=== PATIENT | female | born 1965 | race Caucasian/White ===

== ENCOUNTER → 2017-03-28 | Outpatient (CLI) | payer BC ==
--- NOTE | ~2017-03-28 | NDGEN ---
PATIENT'S NAME: JAMIN SHANKAR [facility] AGE: 52 Y [address] ROOM: [place] [address] LOCATION: [facility] ADMIT DATE: 03/28/2017 Neurodiagnostics DISCHARGE DATE: FAMILY PHYSICIAN: Robert Ramirez MD ATTENDING PHYSICIAN: RACQUEL LAI PROCEDURE: ELECTROENCEPHALOGRAM DATE OF PROCEDURE: 03/28/2017 TIME OF STUDY: 9:55 a.m. This EEG was done for this 52-year-old patient who recently has had difficulty with her memory and occasional unexplained spells of spacing off. Does not remember these specific events. This EEG was done to rule out any evidence of seizure activity or background impairment on the brain wave study. This is a 20-lead EEG done with the patient alert and not drowsy. The patient was awake during this 20-minute study. Hyperventilation and photic stimulation was done during the study. The general background rhythm showed an excellent symmetric sinusoidal pattern of 9 to 10 hertz alpha rhythm pattern, which remained stable throughout the whole course of the study. Occasional eye blink artifacts were seen throughout the study. At no time was there any variability to the background rhythm. There was a nice normal response to photic stimulation with increase in the amplitudes up to 40 microvolts with the patient's eyes closed as well as with photic stimulation. There were no epileptiform features seen and no seizures were recorded. IMPRESSION: Normal EEG. MD NADIA SANTILLAN/modl /[id number] dtt: 04/15/17 1632 JOELLE JASON R. dtd: 03/29/17 0011
== END | disposition disaster alternative care site (69) ==
LOC: GRAD 03-27 09:00
DX: R41.3 Other amnesia (principal); R68.89 Other general symptoms and signs